=== PATIENT | female | born 1990 | race Caucasian/White ===

== ENCOUNTER 2017-02-03 16:50 | Inpatient (IN) | payer OTHER ==
[~2017-02-03] VITALS: Ht 160 cm; Wt 54.7 kg
--- NOTE | ~2017-02-03 | CON ---
[place], [place] REPORT OF CONSULTATION NAME: MICHAEL CESPEDES UNIT #: [id number] ROOM: [place] [address] DOCTOR: LARA BRADY MD BIRTHDATE: [birth year] DOS: 02/04/2017 CHIEF COMPLAINT: "I just got so fed up with life." HISTORY OF PRESENT ILLNESS: This is a 27-year-old white female who presented to [facility] Emergency Room following an acute drug overdose. The patient states that she has been unable to deal with the issues at home with her boyfriend and her son. She took half a bottle of baby aspirin, liquid Tylenol, Benadryl, DayQuil, Imodium and an unknown restless leg medication. She states that the stress at home has been unbearable mainly between her and her boyfriend and states that at this point in time she has decided that she must split from him. She has seen Dr. Dalia Almeida at [facility], but has not seen her for some time. She has been treated for attention deficit disorder with Vyvanse, but again has been noncompliant with the Vyvanse for at least 2-3 weeks. She has never been on any antidepressant medication. 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 She is open to trying a medication for depression at this point and does want to follow up with Dr. Dalia Almeida for counseling. MENTAL STATUS: She is alert and oriented to person, place, and time. Mood is overwhelmingly depressed and she was on the verge of tears. She does express appropriate remorse for her action and states that she has her son to live for and has made the decision in her mind that she will now leave her boyfriend. There is no german or hypomania present. There are no auditory or visual hallucinations present. No paranoia is noted. Short, intermediate, and long-term memory are intact. DIAGNOSIS: Major depression, single episode, severe. PLAN: I will start her on Remeron 15 mg at bedtime to combat the depressive symptomatology. I would strongly recommend that social media community manager reach out to Dr. Dalia Almeida and set up an appointment for Michael to see her as soon as possible post-discharge. LARA BRADY MD CM:CONSTR:REPORT OF CONSULTATION 0936 02/04/17 1039 interface
[~2017-02-03 16:50] MED LIST: MOTRIN800 MG PO; PEPCID AC10 MG PO; PRENTAL 1 PLUS1 TAB PO; ZOFRAN4 MG PO
[2017-02-03 17:00] VITALS: BP 125/70
[2017-02-03 17:09] LABS: BASO # 0.1 10*3/uL (0.0-0.1); BASO % 0.6 % (0.0-1.0); EOS % 0.3 % (1.0-4.0); HEMATOCRIT 39.9 % (37.0-47.0); HEMOGLOBIN 13.6 g/dl (12.0-16.0); LYMPH # 2.4 10*3/uL (1.3-4.4); LYMPH % 23.5 % (27.0-41.0); MEAN CELL VOLUME 88.3 fl (81.0-99.0); MEAN CORPUSCULAR HGB 30.1 pg (27.0-31.0); MEAN CORPUSCULAR HGB CONC 34.1 g/dl (33.0-37.0); MEAN PLATELET VOLUME 10.4 fl (9.6-12.3); MONO # 0.6 10*3/uL (0.1-1.0); MONO % 6.2 % (3.0-9.0); NEUT # 6.9 10*3/uL (2.3-7.9); PLATELET COUNT AUTOMATED 289 10*3/uL (130-400); RED BLOOD COUNT 4.52 10*6/uL (4.10-5.10); RED CELL DISTRI WIDTH 11.9 % (0-14.5); WHITE BLOOD COUNT 10.1 10*3/uL (4.8-10.8)
[2017-02-03] MEDS ORDERED: VYVANSE10 MG PO (17:19)
[2017-02-03 17:21] LABS: BUN 12 mg/dl (7-24); CARBON DIOXIDE 22 mmol/L (21-32); CHLORIDE 111 mmol/L (98-107); EST GLOM FILT AFRICAN AMERICAN > 60 ml/min; GLUCOSE 94 mg/dL (65-99); POTASSIUM 3.8 mmol/L (3.5-5.1); SODIUM 141 mmol/L (136-145)
[2017-02-03 17:43] VITALS: BP 131/72
[2017-02-03 17:44] LABS: BILIRUBIN NEGATIVE (NEGATIVE); BLOOD TRACE-INTACT (NEGATIVE); CLARITY CLEAR (CLEAR); COLOR YELLOW (YELLOW); GLUCOSE NEGATIVE (NEGATIVE); KETONE NEGATIVE (NEGATIVE); LEUKO ESTERASE NEGATIVE (NEGATIVE); NITRITE NEGATIVE (NEGATIVE); PROTEIN NEGATIVE (NEGATIVE); UROBILINOGEN 0.2 E.U./dl (0.2-1.0)
[2017-02-03 17:50] LABS: BACTERIA TRACE; HYALINE CAST 0-2; MUCOUS 1+; URINE REFLEX COMMENT NO (NO); WBC 0-2 wbc/hpf (0-5)
[2017-02-03 17:52] LABS: URINE AMPHETAMINES < 1000 (1000ng/ml); URINE BARBITURATES < 200 (200ng/ml); URINE COCAINE < 300 (300ng/ml)
[2017-02-03 18:40] LABS: ALBUMIN 4.3 gm/dl (3.1-4.5); BILIRUBIN, DIRECT 0.1 mg/dL (0.0-0.2); BILIRUBIN, TOTAL 0.4 mg/dl (0.2-1.0); TOTAL PROTEIN 7.7 gm/dL (6.4-8.2)
[2017-02-03 18:47] VITALS: BP 118/76
[2017-02-03 19:08] VITALS: BP 119/59
[2017-02-03 19:42] VITALS: BP 126/66
[2017-02-03 19:55] VITALS: BP 117/73
[2017-02-03 20:22] LABS: BUN 11 mg/dl (7-24); CARBON DIOXIDE 23 mmol/L (21-32); CHLORIDE 117 mmol/L (98-107); EST GLOM FILT AFRICAN AMERICAN > 60 ml/min; GLUCOSE 106 mg/dL (65-99); POTASSIUM 3.9 mmol/L (3.5-5.1); SODIUM 145 mmol/L (136-145)
[2017-02-03 20:27] LABS: TROPONIN I < 0.015 ng/ml (<0.045)
[2017-02-03] MEDS ORDERED: VYVANSE40 MG PO (20:38)
[2017-02-03 22:14] LABS: BUN 11 mg/dl (7-24); CARBON DIOXIDE 25 mmol/L (21-32); CHLORIDE 118 mmol/L (98-107); EST GLOM FILT AFRICAN AMERICAN > 60 ml/min; GLUCOSE 101 mg/dL (65-99); POTASSIUM 3.9 mmol/L (3.5-5.1); SODIUM 146 mmol/L (136-145)
[2017-02-03 23:36] LABS: ABG BASE EXCESS 0.2 mmol/L (-2.0-2.0); ABG CO2 CONTENT 22.8 mmol/L (23-27); ABG TEMPERATURE 98.2 F (98.0-99.0); ARTERIAL BLOOD GAS PH 7.511 (7.35-7.45)
[2017-02-04] VITALS: BP 108/53
[2017-02-04 00:28] LABS: BUN 11 mg/dl (7-24); CARBON DIOXIDE 22 mmol/L (21-32); CHLORIDE 116 mmol/L (98-107); EST GLOM FILT AFRICAN AMERICAN > 60 ml/min; GLUCOSE 123 mg/dL (65-99); POTASSIUM 3.1 mmol/L (3.5-5.1); SODIUM 143 mmol/L (136-145)
[2017-02-04 02:45] LABS: BUN 10 mg/dl (7-24); CARBON DIOXIDE 24 mmol/L (21-32); CHLORIDE 115 mmol/L (98-107); EST GLOM FILT AFRICAN AMERICAN > 60 ml/min; GLUCOSE 132 mg/dL (65-99); SODIUM 145 mmol/L (136-145)
[2017-02-04 02:46] LABS: TROPONIN I < 0.015 ng/ml (<0.045)
[2017-02-04 04:00] VITALS: BP 105/60
[2017-02-04 04:06] LABS: BUN 10 mg/dl (7-24); CARBON DIOXIDE 26 mmol/L (21-32); CHLORIDE 113 mmol/L (98-107); EST GLOM FILT AFRICAN AMERICAN > 60 ml/min; GLUCOSE 119 mg/dL (65-99); POTASSIUM 3.1 mmol/L (3.5-5.1); SODIUM 145 mmol/L (136-145)
[2017-02-04 06:08] LABS: BASO % 0.3 % (0.0-1.0); EOS # 0.1 10*3/uL (0.0-0.4); EOS % 0.6 % (1.0-4.0); HEMATOCRIT 34.1 % (37.0-47.0); HEMOGLOBIN 11.7 g/dl (12.0-16.0); LYMPH # 2.8 10*3/uL (1.3-4.4); LYMPH % 28.2 % (27.0-41.0); MEAN CORPUSCULAR HGB 29.8 pg (27.0-31.0); MEAN CORPUSCULAR HGB CONC 34.3 g/dl (33.0-37.0); MEAN PLATELET VOLUME 10.8 fl (9.6-12.3); MONO # 0.7 10*3/uL (0.1-1.0); MONO % 7.6 % (3.0-9.0); NEUT # 6.2 10*3/uL (2.3-7.9); NEUT % 63.1 % (47.0-73.0); PLATELET COUNT AUTOMATED 236 10*3/uL (130-400); RED BLOOD COUNT 3.92 10*6/uL (4.10-5.10); WHITE BLOOD COUNT 9.8 10*3/uL (4.8-10.8)
[2017-02-04 06:23] LABS: ALBUMIN 3.2 gm/dl (3.1-4.5); ALKALINE PHOSPHATASE 45 U/L (45-117); BILIRUBIN, TOTAL 0.4 mg/dl (0.2-1.0); BUN 10 mg/dl (7-24); CARBON DIOXIDE 26 mmol/L (21-32); CHLORIDE 112 mmol/L (98-107); CHOLESTEROL 100 mg/dL (<200); EST GLOM FILT AFRICAN AMERICAN > 60 ml/min; FREE T4 1.13 ng/dl (0.76-1.46); GLUCOSE 107 mg/dL (65-99); HDL CHOLESTEROL 33 mg/dl (40-60); LDL CHOLESTEROL 52 mg/dL (9-159); PHOSPHOROUS 2.5 mg/dL (2.5-4.9); POTASSIUM 3.2 mmol/L (3.5-5.1); SGOT/AST 11 IU/L (3-35); SGPT/ALT 19 U/L (12-78); SODIUM 144 mmol/L (136-145); TOTAL PROTEIN 6.2 gm/dL (6.4-8.2); TRIGLYCERIDES 75 mg/dl (<150); VLDL CHOLESTEROL 15 mg/dL (6-40)
[2017-02-04 06:24] LABS: BUN 10 mg/dl (7-24); CARBON DIOXIDE 26 mmol/L (21-32); CHLORIDE 112 mmol/L (98-107); EST GLOM FILT AFRICAN AMERICAN > 60 ml/min; GLUCOSE 108 mg/dL (65-99); POTASSIUM 3.2 mmol/L (3.5-5.1); SODIUM 145 mmol/L (136-145)
[2017-02-04 06:28] LABS: THYROID STIM HORMONE (HS) 0.592 uIU/ml (0.358-4.75)
[2017-02-04 06:30] LABS: INTERNATIONAL NORM RATIO 1.2 (2.0-3.5); PROTHROMBIN TIME 12.6 SECONDS (9.0-12.4)
[2017-02-04 06:44] LABS: VITAMIN D, 25-HYDROXY 26.4 ng/mL (30-100)
[2017-02-04 06:45] LABS: FOLIC ACID 10.94 ng/mL (>5.38)
[2017-02-04 08:00] VITALS: BP 102/46
[2017-02-04 08:33] LABS: BUN 9 mg/dl (7-24); CARBON DIOXIDE 27 mmol/L (21-32); CHLORIDE 111 mmol/L (98-107); EST GLOM FILT AFRICAN AMERICAN > 60 ml/min; GLUCOSE 133 mg/dL (65-99); POTASSIUM 3.1 mmol/L (3.5-5.1); SODIUM 144 mmol/L (136-145)
[2017-02-04 10:44] LABS: BUN 9 mg/dl (7-24); CARBON DIOXIDE 28 mmol/L (21-32); CHLORIDE 110 mmol/L (98-107); EST GLOM FILT AFRICAN AMERICAN > 60 ml/min; GLUCOSE 114 mg/dL (65-99); POTASSIUM 3.1 mmol/L (3.5-5.1); SODIUM 144 mmol/L (136-145)
[2017-02-04 12:00] VITALS: BP 96/50
[2017-02-04 12:18] LABS: BUN 7 mg/dl (7-24); CARBON DIOXIDE 28 mmol/L (21-32); CHLORIDE 109 mmol/L (98-107); EST GLOM FILT AFRICAN AMERICAN > 60 ml/min; GLUCOSE 110 mg/dL (65-99); POTASSIUM 3.5 mmol/L (3.5-5.1); SODIUM 142 mmol/L (136-145)
[2017-02-04 15:46] VITALS: BP 108/56
[2017-02-04 20:00] VITALS: BP 101/56
[2017-02-05] VITALS: BP 99/50
[2017-02-05 04:00] VITALS: BP 98/50
[2017-02-05 05:47] LABS: ALBUMIN 3.4 gm/dl (3.1-4.5); ALKALINE PHOSPHATASE 43 U/L (45-117); BILIRUBIN, TOTAL 0.3 mg/dl (0.2-1.0); BUN 11 mg/dl (7-24); CARBON DIOXIDE 24 mmol/L (21-32); CHLORIDE 110 mmol/L (98-107); EST GLOM FILT AFRICAN AMERICAN > 60 ml/min; GLUCOSE 82 mg/dL (65-99); POTASSIUM 3.6 mmol/L (3.5-5.1); SGOT/AST 10 IU/L (3-35); SGPT/ALT 17 U/L (12-78); SODIUM 140 mmol/L (136-145); TOTAL PROTEIN 6.1 gm/dL (6.4-8.2)
[2017-02-05 06:09] LABS: BASO # 0.1 10*3/uL (0.0-0.1); BASO % 0.6 % (0.0-1.0); EOS # 0.2 10*3/uL (0.0-0.4); EOS % 1.9 % (1.0-4.0); HEMATOCRIT 35.5 % (37.0-47.0); HEMOGLOBIN 11.7 g/dl (12.0-16.0); LYMPH # 3.4 10*3/uL (1.3-4.4); LYMPH % 43.3 % (27.0-41.0); MEAN CORPUSCULAR HGB 30.1 pg (27.0-31.0); MONO # 0.6 10*3/uL (0.1-1.0); NEUT # 3.6 10*3/uL (2.3-7.9); NEUT % 46.1 % (47.0-73.0); PLATELET COUNT AUTOMATED 212 10*3/uL (130-400); RED BLOOD COUNT 3.89 10*6/uL (4.10-5.10); RED CELL DISTRI WIDTH 12.3 % (0-14.5); WHITE BLOOD COUNT 7.7 10*3/uL (4.8-10.8)
[2017-02-05 06:10] LABS: MEAN CELL VOLUME 91.3 fl (81.0-99.0)
[2017-02-05 08:00] VITALS: BP 114/64
[2017-02-05] MEDS ORDERED: MIRTAZAPINE15 M2 PO (08:37)
[2017-02-05] MEDS ORDERED: D-1000 185 MG-11 TAB PO (08:39)
== END 2017-02-05 09:44 | disposition home or self-care (01) | DRG 918 ==
LOC: ED 16:50 → ICCU 18:13 → EDHOLD 18:13 → ICCU 18:31
PROVIDERS: Emergency Medicine; Family Medicine; Hospitalist; Student in an Organized Health Care Education/Training Program
DX: T39.012A Poisoning by aspirin, intentional self-harm, initial encounter (principal); F32.2 Major depressive disorder, single episode, severe without psychotic features; E87.8 Other disorders of electrolyte and fluid balance, not elsewhere classified; F17.210 Nicotine dependence, cigarettes, uncomplicated; T39.1X2A Poisoning by 4-Aminophenol derivatives, intentional self-harm, initial encounter; T45.0X2A Poisoning by antiallergic and antiemetic drugs, intentional self-harm, initial encounter; F90.9 Attention-deficit hyperactivity disorder, unspecified type; F12.10 Cannabis abuse, uncomplicated; R31.29 Other microscopic hematuria; R00.0 Tachycardia, unspecified; Z71.6 Tobacco abuse counseling; Y92.89 Other specified places as the place of occurrence of the external cause; Z88.1 Allergy status to other antibiotic agents; Z79.899 Other long term (current) drug therapy; Z90.49 Acquired absence of other specified parts of digestive tract; Z83.3 Family history of diabetes mellitus; Z80.8 Family history of malignant neoplasm of other organs or systems

== ENCOUNTER 2018-12-12 12:42 | Inpatient (IN) | payer SELFPAY ==
[2018-12-12] VITALS (8 sets, daily range): BP systolic 97–123; BP diastolic 59–77
[~2018-12-12] VITALS: Ht 162.6 cm; Wt 69.9 kg
--- NOTE | ~2018-12-12 | EKG ---
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
--- NOTE | ~2018-12-12 | EKG ---
[place], [place] ELECTROCARDIOGRAM REPORT NAME: MICHAEL CESPEDES UNIT #: [id number] ROOM: [place] [address] DOCTOR: JOSE FRANCISCO DRAFT REPORT BIRTHDATE: [birth year] [facility] Test Date: 2018-12-12 Test Time: 13:00:25 Pat Name: MICHAEL CESPEDES Department: Room: [place] [address] Gender: F E Mail System Administrator: : 1990 Requested By: KANE CACERES Order Number: [id number] Reading MD: Olivia Joya Measurements Intervals [place] Rate: 95 P: 47 IA: 141 QRS: 58 QRSD: 75 T: 71 QT: 332 QTc: 418 Interpretive Statements Sinus rhythm No previous ECG available for comparison Electronically Signed On 12-12-2018 13:49:31 PDT by Olivia Joya CM:EKGRPT:ELECTROCARDIOGRAM REPORT 1300 1349 KANE FELTON DRAFT REPORT KANE CACERES MD
--- NOTE | ~2018-12-12 | EKG ---
[place], [place] ELECTROCARDIOGRAM REPORT NAME: MICHAEL CESPEDES UNIT #: [id number] ROOM: [place] [address] DOCTOR: JOSE FRANCISCO DRAFT REPORT BIRTHDATE: [birth year] [facility] Test Date: 2018-12-13 Test Time: 07:41:39 Pat Name: MICHAEL CESPEDES Department: Room: [place] [address] Gender: F Peat Shredder Tender: : 1990 Requested By: SUNITA RUIZ Order Number: [id number] Reading MD: Olivia Joya Measurements Intervals [place] Rate: 82 P: 39 MT: 150 QRS: 41 QRSD: 83 T: 50 QT: 388 QTc: 453 Interpretive Statements Sinus rhythm Baseline wander in lead(s) V3,V4 Compared to ECG 12/12/2018 14:38:14 Sinus tachycardia no longer present Prolonged QT interval no longer present Electronically Signed On 12-16-2018 11:45:40 PDT by Olivia Joya CM:EKGRPT:ELECTROCARDIOGRAM REPORT 0741 1145 SUNITA RUIZ EPIPHANY DRAFT REPORT SUNITA RUIZ
--- NOTE | ~2018-12-12 | PR ---
[place], [place] PROGRESS NOTE NAME: MICHAEL CESPEDES UNIT #: [id number] ROOM: [place] [address] DOCTOR: SHAHAB, PHD YARELI BIRTHDATE: [birth year] DOS: 12/17/2018 SUBJECTIVE: I followed up with the patient today regarding suicidality. She reports that her mood has improved following having some time to think while in the ICU. Discussed her relationship with her boyfriend and plans to effectively manage confrontation in the future. The patient is treatment motivated and wanting to continue with the plan for inpatient treatment. She then plans to follow up with outpatient treatment as well. Utilized CBT and supportive therapy interventions. The patient appeared to benefit. DIAGNOSIS: Major depressive disorder, recurrent, severe. PLAN: Awaiting to hear from probate court to determine if the patient will be going to inpatient psychiatric treatment. Kim Kline, PhD CM:ROXANA [id number] PHD YARELI KLINE 12/17/18 5000 interface
--- NOTE | ~2018-12-12 | EKG ---
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
--- NOTE | ~2018-12-12 | CON ---
[place], [place] REPORT OF CONSULTATION NAME: MICHAEL CESPEDES UNIT #: [id number] ROOM: [place] [address] DOCTOR: PHD YARELI KLINE BIRTHDATE: [birth year] DOS: 12/13/2018 HISTORY OF PRESENT ILLNESS: The patient is a 28-year-old female referred by the hospitalist following an intentional overdose on a new bottle of Tylenol PM, which was presumed to be 100 pills. While in the ED, the patient told nursing staff that she was wanting to hurt herself when she was at home. The patient has a history of overdose on pills in 01/2017. She has followed up with Dr. Almeida and [facility], but does not have insurance and is unable to attend and struggles to attend regularly. She lives with her boyfriend with whom she has a contentious relationship to have a 7-year.old son. Per the patient's mother, the patient lost their child in October five years ago when she was 8 months and that this time of the year is very difficult for the patient. The patient reports social alcohol use, up to 2 packs a day of cigarettes, and marijuana use. PAST MEDICAL HISTORY: ADHD, depression, overdose, vitamin D deficiency. MEDICATIONS: Nicoderm, Lovenox, Zofran, and Ativan. MENTAL STATUS EXAMINATION: The patient was lying in bed in no apparent distress. She is awake, alert and oriented to person and place and generally to time. Mood was depressed and affect was flat. She denied current suicidal ideation, plan, or intent. She denied homicidal ideation. She states that she impulsively took the Tylenol after an argument with her boyfriend. She stated that she wanted to "show him to lessen". Speech was slow and soft. Expressive and receptive language appeared within normal limits. Conversationally, the patient continued to appear to be somewhat confused. There was no evidence of hallucinations or delusions. The patient was not very forthcoming about the events leading up to her hospitalization, but did acknowledge significant relationship stress with her boyfriend Per the patient's mother, the patient and her boyfriend have been "triggering" each other lately and she had been on the phone with her daughter frequently trying to help calm her down. She states that her daughter does not adhere to mental health treatment due to insurance and financial issues. She is very concerned about her daughter's safety and mental health as she threatened suicide at times with 1 prior attempt in 2017. She was hospitalized last year, near [place] due to suicidal ideation. The patient stated that she would like to pursue Inpatient psychiatric treatment to provide further psychiatric stabilization. DIAGNOSIS: Major depressive disorder, recurrent, severe. PLAN: Given the seriousness of the patient's attempt and her statements in the ED that she had wanted to prior to taking the pills, the patient would likely benefit from inpatient psychiatric treatment. She is denying suicidal ideation currently, but is wanting to pursue inpatient treatment at this time. I spoke with Karuna Rock and she is working on getting [facility] her once she is medically stable. Thank you very much for this consult. [place], [place] REPORT OF CONSULTATION NAME: MICHAEL CESPEDES Rik UNIT #: [id number] ROOM: [place] [address] DOCTOR: SHAHAB, PHD YARELI BIRTHDATE: [birth year] Kim Kline, PhD CM:CONSTR:REPORT OF CONSULTATION 1717 12/14/18 0053 interface
--- NOTE | ~2018-12-12 | EKG ---
[place], [place] ELECTROCARDIOGRAM REPORT NAME: MICHAEL CESPEDES UNIT #: [id number] ROOM: [place] [address] DOCTOR: JOSE FRANCISCO DRAFT REPORT BIRTHDATE: [birth year] [facility] Test Date: 2018-12-13 Test Time: 14:44:04 Pat Name: MICHAEL CESPEDES Department: Room: [place] [address] Gender: F Program Clinician: Tatum Covarrubias : 1990 Requested By: SUNITA RUIZ Order Number: [id number] Reading MD: Olivia Joya Measurements Intervals [place] Rate: 90 P: 36 CO: 140 QRS: 41 QRSD: 75 T: 49 QT: 347 QTc: 425 Interpretive Statements Sinus rhythm Compared to ECG 12/12/2018 14:38:14 Sinus tachycardia no longer present Prolonged QT interval no longer present Electronically Signed On 12-16-2018 11:49:45 PDT by Olivia Joya CM:EKGRPT:ELECTROCARDIOGRAM REPORT 1444 1149 SUNITA RUIZ EPIPHANY DRAFT REPORT SUNITA RUIZ
--- NOTE | ~2018-12-12 | EKG ---
[place], [place] ELECTROCARDIOGRAM REPORT NAME: MICHAEL CESPEDES UNIT #: [id number] ROOM: [place] [address] DOCTOR: JOSE FRANCISCO DRAFT REPORT BIRTHDATE: [birth year] [facility] Test Date: 2018-12-12 Test Time: 14:38:14 Pat Name: MICHAEL CESPEDES Department: Room: [place] [address] Gender: F Contracting Officer: : 1990 Requested By: KANE CACERES Order Number: [id number] Reading MD: Olivia Joya Measurements Intervals [place] Rate: 114 P: 44 MT: 132 QRS: 53 QRSD: 82 T: 38 QT: 360 QTc: 496 Interpretive Statements Sinus tachycardia Prolonged QT interval No previous ECG available for comparison Electronically Signed On 12-12-2018 13:49:51 PDT by Olivia Joya CM:EKGRPT:ELECTROCARDIOGRAM REPORT 1438 1349 KANE FELTON DRAFT REPORT KANE CACERES MD
[~2018-12-12 12:42] MED LIST changes: +CLINDAMYCIN HC300 MG PO; +D-1000 185 MG-11 TAB PO; +MIRTAZAPINE15 M2 PO; +VYVANSE10 MG PO; +VYVANSE40 MG PO
[2018-12-12 13:26] LABS: BILIRUBIN NEGATIVE (NEGATIVE); BLOOD TRACE-INTACT (NEGATIVE); CLARITY CLOUDY (CLEAR); COLOR YELLOW (YELLOW); GLUCOSE NEGATIVE (NEGATIVE); KETONE TRACE (NEGATIVE); LEUKO ESTERASE NEGATIVE (NEGATIVE); NITRITE NEGATIVE (NEGATIVE); SPECIFIC GRAVITY 1.025 (1.005-1.030); UROBILINOGEN 0.2 E.U./dl (0.2-1.0)
[2018-12-12 13:38] LABS: BACTERIA 4+
[2018-12-12 13:39] LABS: EPITHELIAL CELLS 45-50; MUCOUS 2+; URINE BENZODIAZEPINES < 200 (200ng/ml); URINE CANNABINOIDS (THC) > 50 (50ng/ml); URINE COCAINE < 300 (300ng/ml); URINE METHADONE < 300 (300ng/ml); URINE OPIATES < 300 (300ng/ml)
[2018-12-12 13:40] LABS: BASO # 0.1 10*3/uL (0.0-0.1); BASO % 0.6 % (0.0-1.0); EOS # 0.1 10*3/uL (0.0-0.4); EOS % 1.3 % (1.0-4.0); HEMATOCRIT 40.9 % (37.0-47.0); HEMOGLOBIN 13.7 g/dl (12.0-16.0); LYMPH # 3.2 10*3/uL (1.3-4.4); LYMPH % 28.4 % (27.0-41.0); MEAN CELL VOLUME 89.7 fl (81.0-99.0); MEAN CORPUSCULAR HGB CONC 33.5 g/dl (33.0-37.0); MEAN PLATELET VOLUME 10.1 fl (9.6-12.3); MONO # 0.6 10*3/uL (0.1-1.0); MONO % 5.5 % (3.0-9.0); NEUT # 7.2 10*3/uL (2.3-7.9); NEUT % 63.8 % (47.0-73.0); PLATELET COUNT AUTOMATED 261 10*3/uL (130-400); RED BLOOD COUNT 4.56 10*6/uL (4.10-5.10); RED CELL DISTRI WIDTH 11.9 % (0-14.5); WHITE BLOOD COUNT 11.2 10*3/uL (4.8-10.8)
[2018-12-12 13:43] LABS: URINE AMPHETAMINES < 1000 (1000ng/ml); URINE BARBITURATES < 200 (200ng/ml); URINE PHENCYCLIDINE < 25 (25ng/ml)
[2018-12-12 13:50] LABS: ACT PARTIAL THROMBO TIME 26.8 SECONDS (20.0-32.1)
[2018-12-12 13:58] LABS: ALKALINE PHOSPHATASE 72 U/L (45-117); BUN 12 mg/dl (7-24); CHLORIDE 107 mmol/L (98-107); CREATININE 0.92 mg/dL (0.55-1.02); POTASSIUM 3.6 mmol/L (3.5-5.1); SGOT/AST 46 IU/L (3-35); SGPT/ALT 73 U/L (12-78); SODIUM 138 mmol/L (136-145); TOTAL PROTEIN 7.4 gm/dL (6.4-8.2)
[2018-12-12 13:59] LABS: B-hCG (QUALITATIVE) NEGATIVE (NEGATIVE)
[2018-12-12 14:01] LABS: ETHYL ALCOHOL < 3.0 mg/dl (<3)
[2018-12-12 14:26] LABS: ACETAMINOPHEN (TYLENOL) 330.8 ug/ml (10-30)
[2018-12-13] VITALS (7 sets, daily range): BP systolic 100–124; BP diastolic 57–67
[2018-12-13 07:56] LABS: ACETAMINOPHEN (TYLENOL) 8.4 ug/ml (10-30); ALBUMIN 3.6 gm/dl (3.1-4.5); ALKALINE PHOSPHATASE 63 U/L (45-117); BUN 8 mg/dl (7-24); CHLORIDE 109 mmol/L (98-107); CREATININE 0.68 mg/dL (0.55-1.02); POTASSIUM 3.2 mmol/L (3.5-5.1); SGOT/AST 33 IU/L (3-35); SGPT/ALT 65 U/L (12-78); SODIUM 138 mmol/L (136-145); TOTAL PROTEIN 6.8 gm/dL (6.4-8.2)
[2018-12-13 07:59] LABS: FREE T4 1.07 ng/dl (0.76-1.46); INTERNATIONAL NORM RATIO 1.1 (2.0-3.5); PHOSPHOROUS 3.1 mg/dL (2.5-4.9)
[2018-12-13 08:05] LABS: THYROID STIM HORMONE (HS) 2.4 uIU/ml (0.358-4.75)
[2018-12-13 08:56] LABS: VITAMIN D, 25-HYDROXY 22.2 ng/mL (30-100)
[2018-12-13 12:34] LABS: ALBUMIN 3.8 gm/dl (3.1-4.5); ALKALINE PHOSPHATASE 61 U/L (45-117); BUN 7 mg/dl (7-24); CHLORIDE 108 mmol/L (98-107); CREATININE 0.66 mg/dL (0.55-1.02); POTASSIUM 3.9 mmol/L (3.5-5.1); SGOT/AST 32 IU/L (3-35); SGPT/ALT 62 U/L (12-78); SODIUM 139 mmol/L (136-145); TOTAL PROTEIN 6.9 gm/dL (6.4-8.2)
[2018-12-13 12:39] LABS: ACETAMINOPHEN (TYLENOL) < 5.0 ug/ml (10-30)
[2018-12-14] VITALS (7 sets, daily range): BP systolic 98–110; BP diastolic 50–68
[2018-12-14 05:50] LABS: BUN 12 mg/dl (7-24); CHLORIDE 111 mmol/L (98-107); CREATININE 0.82 mg/dL (0.55-1.02); POTASSIUM 3.9 mmol/L (3.5-5.1); SODIUM 141 mmol/L (136-145)
[2018-12-15 06:02] LABS: BASO # 0.1 10*3/uL (0.0-0.1); BASO % 0.7 % (0.0-1.0); EOS # 0.2 10*3/uL (0.0-0.4); EOS % 2.8 % (1.0-4.0); HEMATOCRIT 38.2 % (37.0-47.0); HEMOGLOBIN 12.3 g/dl (12.0-16.0); LYMPH # 2.8 10*3/uL (1.3-4.4); LYMPH % 36.7 % (27.0-41.0); MEAN CELL VOLUME 91.8 fl (81.0-99.0); MEAN CORPUSCULAR HGB 29.6 pg (27.0-31.0); MEAN CORPUSCULAR HGB CONC 32.2 g/dl (33.0-37.0); MEAN PLATELET VOLUME 10.6 fl (9.6-12.3); MONO # 0.7 10*3/uL (0.1-1.0); MONO % 8.7 % (3.0-9.0); NEUT # 3.8 10*3/uL (2.3-7.9); NEUT % 50.4 % (47.0-73.0); PLATELET COUNT AUTOMATED 249 10*3/uL (130-400); RED BLOOD COUNT 4.16 10*6/uL (4.10-5.10); RED CELL DISTRI WIDTH 12.1 % (0-14.5); WHITE BLOOD COUNT 7.6 10*3/uL (4.8-10.8)
[2018-12-15 08:56] VITALS: BP 81/42
[2018-12-15 12:00] VITALS: BP 110/71
[2018-12-15 16:00] VITALS: BP 110/53
[2018-12-15 20:00] VITALS: BP 112/64
[2018-12-16] VITALS: BP 108/56
[2018-12-16 04:00] VITALS: BP 104/60
[2018-12-16 08:00] VITALS: BP 98/44
[2018-12-16 16:00] VITALS: BP 120/63
[2018-12-16 19:30] VITALS: BP 108/68
[2018-12-17] VITALS: BP 106/50
[2018-12-17 05:58] LABS: CREATININE 0.66 mg/dL (0.55-1.02)
[2018-12-17 08:00] VITALS: BP 98/46
[2018-12-17 16:00] VITALS: BP 112/61
[2018-12-17 20:00] VITALS: BP 107/51
[2018-12-18 08:00] VITALS: BP 95/52
[2018-12-18] MEDS ORDERED: VITAMIN D32000 UNI1 PO (14:24)
== END 2018-12-18 15:04 | disposition home health service (06) | DRG 917 ==
LOC: ED 12:42 → ICCU 14:12 → EDHOLD 14:12 → ICCU 16:44
PROVIDERS: Emergency Medicine; Internal Medicine; Student in an Organized Health Care Education/Training Program; ADMIT Internal Medicine
DX: T39.1X2A Poisoning by 4-Aminophenol derivatives, intentional self-harm, initial encounter (principal); G93.41 Metabolic encephalopathy; R65.10 Systemic inflammatory response syndrome (SIRS) of non-infectious origin without acute organ dysfunction; F33.2 Major depressive disorder, recurrent severe without psychotic features; R06.82 Tachypnea, not elsewhere classified; F90.9 Attention-deficit hyperactivity disorder, unspecified type; E55.9 Vitamin D deficiency, unspecified; F17.210 Nicotine dependence, cigarettes, uncomplicated; I10 Essential (primary) hypertension; E66.3 Overweight; E87.8 Other disorders of electrolyte and fluid balance, not elsewhere classified; R74.0 Nonspecific elevation of levels of transaminase and lactic acid dehydrogenase [LDH]; E87.6 Hypokalemia; Y92.89 Other specified places as the place of occurrence of the external cause; Z91.5 Personal history of self-harm; Z88.1 Allergy status to other antibiotic agents; Z83.3 Family history of diabetes mellitus; Z80.8 Family history of malignant neoplasm of other organs or systems; Z79.899 Other long term (current) drug therapy; Z68.26 Body mass index [BMI] 26.0-26.9, adult